=== PATIENT | male | born 1960 ===

== ENCOUNTER 2020-10-23 07:02 | Emergency (ER) | payer MEDICARE, MEDICAID ==
--- NOTE | 2020-10-23 07:59 | XRay Report ---
CHEST 2 VIEWS INDICATION / CLINICAL INFORMATION: SOB. In need of dialysis. COMPARISON: None available. FINDINGS: SUPPORT DEVICES: None. HEART / MEDIASTINUM: No significant abnormality. LUNGS / PLEURA: Bilateral pulmonary opacities are noted. Some areas of interstitial nodularity are se en No pneumothorax. ADDITIONAL FINDINGS: No significant additional findings. IMPRESSION: 1. Bilateral pulmonary opacities with some interstitial nodularity could represent atypical infection . Follow-up recommended. Signer Name: Franc Gonzalez MD Signed: 10/23/2020 7:54 AM Workstation Name: [id number]
[2020-10-23 08:19] LABS: Hematocrit 36.7 % (35.5-45.6); Mean Corpuscular HGB Conc 33 % (32-34); Mean Corpuscular Volume 88 fl (84-94); Platelet Count 238 K/mm3 (140-440); Red Blood Count 4.15 M/mm3 (3.65-5.03)
[2020-10-23 08:28] LABS: Red Cell Distribution Width 22.5 % (13.2-15.2)
[2020-10-23 08:33] LABS: Calcium 9.1 mg/dL (8.4-10.2)
--- NOTE | 2020-10-23 08:37 | Emergency Department Report ---
HPI - General Chief Complaint: Medical Clearance Time Seen by Provider: 10/23/20 07:42 - HPI HPI: This is a 60-year-old -[place] male who presents to the emergency department with the complaint of being unable to receive dialysis. The patient is visiting from [place] and thought that he had been set up to get dialysis today at [facility]. However he found out that he does not have a chair/spot set up for him. He gets dialysis on Sunday and Saturdays, twice a week. He also has a history of arthritis, diabetes and hypertension. He has a left upper extremity dialysis fistula for access. He admits to a very small amount of shortness of breath and an occasional cough. He is a tobacco smoker. He is vaccinated for COVID-19. He denies any fever, chest pain, lower extremity swelling, nausea, vomiting, abdominal pain, back pain. ED Past Medical Hx - Past Medical History Previous Medical History?: Yes Hx Hypertension: Yes Hx Diabetes: Yes Hx Renal Disease: Yes (HD , ) Hx Arthritis: Yes Additional medical history: Neuropathy - Surgical History Past Surgical History?: Yes Additional Surgical History: Umbilical hernia surgery, Avinash. Rotator cuff repair, Left arm fistula - Social History Smoking Status: Current Every Day Smoker Substance Use Type: Marijuana, Prescribed - Medications Home Medications: Home Medications Medication Instructions Recorded Confirmed Last Taken Type Alprazolam 5 mg PO TID 10/23/20 10/23/20 Unknown History Amitriptyline 100 mg PO HS 10/23/20 10/23/20 Unknown History Atorvastatin 40 mg PO DAILY 10/23/20 10/23/20 Unknown History Clindamycin 300 mg PO TID 10/23/20 10/23/20 Unknown History DULoxetine 60 mg PO DAILY 10/23/20 10/23/20 Unknown History Dexilant 60 mg PO DAILY 10/23/20 10/23/20 Unknown History Furosemide (10 mg/ml) 40 mg PO DAILY 10/23/20 10/23/20 Unknown History LORazepam 5 mg PO TID 10/23/20 10/23/20 Unknown History Lyrica 75 mg PO DAILY 10/23/20 10/23/20 Unknown History Sertraline 50 mg PO DAILY 10/23/20 10/23/20 Unknown History Tamsulosin 4 mg PO DAILY 10/23/20 10/23/20 Unknown History oxyCODONE /ACETAMINOPHEN 325 mg PO TID 10/23/20 10/23/20 Unknown History ED Review of Systems ROS: Stated complaint: DIALYSIS Other details as noted in HPI Comment: All other systems reviewed and negative Constitutional: denies: chills, fever Eyes: denies: eye pain, vision change ENT: denies: ear pain, throat pain Respiratory: cough, shortness of breath Cardiovascular: denies: chest pain, palpitations Gastrointestinal: denies: abdominal pain, vomiting Genitourinary: denies: dysuria, discharge Musculoskeletal: denies: back pain, arthralgia Skin: denies: rash, lesions Neurological: denies: headache, weakness Physical Exam - Physical Exam Vital Signs: Vital Signs 10/23/20 07:06 Temperature 98.8 F Pulse Rate 100 H Respiratory 20 Rate Blood Pressure 153/86 O2 Sat by Pulse 90 Oximetry Physical Exam: GENERAL: The patient is well-developed well-nourished. HENT: Normocephalic. Atraumatic. Patient has moist mucous membranes. EYES: Extraocular motions are intact. NECK: Supple. Trachea is midline. CHEST/LUNGS: There are some coarse breath sounds heard. No tachypnea or accessory muscle use. There is no respiratory distress noted. HEART/CARDIOVASCULAR: Regular. There is no tachycardia. There is no murmur. ABDOMEN: Abdomen is soft, nontender. Patient has normal bowel sounds. There is no abdominal distention. SKIN: Skin is warm and dry. NEURO: The patient is awake, alert, and oriented. The patient is cooperative. Normal speech. MUSCULOSKELETAL: There is no tenderness or deformity. There is no limitation range of motion. ED Course Vital Signs 10/23/20 07:06 Temperature 98.8 F Pulse Rate 100 H Respiratory 20 Rate Blood Pressure 153/86 O2 Sat by Pulse 90 Oximetry ED Medical Decision Making - Lab Data Result diagrams: 10/23/20 07:58 10/23/20 07:58 Lab Results 10/23/20 10/23/20 10/23/20 Range/Units 07:58 07:58 09:26 WBC 8.8 (4.5-11.0) K/mm3 RBC 4.15 (3.65-5.03) M/mm3 Hgb 12.0 (11.8-15.2) gm/dl Hct 36.7 (35.5-45.6) % MCV 88 (84-94) fl MCH 29 (28-32) pg MCHC 33 (32-34) % RDW 22.5 H (13.2-15.2) % Plt Count 238 (140-440) K/mm3 Sodium 136 L (137-145) mmol/L Potassium 5.0 (3.6-5.0) mmol/L Chloride 90.4 L (98-107) mmol/L Carbon Dioxide 30 (22-30) mmol/L Anion Gap 21 mmol/L BUN 62 H (9-20) mg/dL Creatinine 9.5 H (0.8-1.3) mg/dL Estimated GFR 6 ml/min BUN/Creatinine Ratio 7 % Glucose 141 H (75-100) mg/dL Calcium 9.1 (8.4-10.2) mg/dL Hepatitis A IgM Ab Non-reactive (NonReactive) Hep Bs Antigen Non-reactive (Negative) Hep B Core IgM Ab Non-reactive (NonReactive) Hepatitis C Antibody Non-reactive (NonReactive) - Medical Decision Making This patient presents with the need for dialysis as he is visiting from out of town and did not get dialysis prearranged. Patient complains of some mild shortness of breath and does have an oxygen saturation of about 90%. The patient is a tobacco smoker and admits that he may be in the early stages of COPD. No significant tachypnea. He does not appear in respiratory distress. Chest x-ray shows some pulmonary vascular congestion. Labs shows renal sufficiency consistent with his end-stage renal disease on hemodialysis. No significant hyperkalemia. Nephrology contacted and consulted. The patient will be admitted to the hospitalist service for dialysis this morning/afternoon. Critical Care Time: No Critical care attestation.: If time is entered above; I have spent that time in minutes in the direct care of this critically ill patient, excluding procedure time. ED Disposition Clinical Impression: ESRD needing dialysis Hypertension Qualifiers: Hypertension type: primary hypertension Qualified Code(s): I10 - Essential (primary) hypertension Volume overload Qualifiers: Hypervolemia type: unspecified Qualified Code(s): E87.70 - Fluid overload, unsp ecified Disposition: DC- TO HOME OR SELFCARE Is pt being admited?: Yes Condition: Good Instructions: Hypertension (ED)
[2020-10-23] MEDS ORDERED: HYDROmorphone 1 MG/1 ML INJ IV ONE (09:12)
--- NOTE | 2020-10-23 10:02 | History and Physical Report ---
History of Present Illness Date of examination: 10/23/20 Date of admission: 10/23/2020 Chief complaint: I need dialysis History of present illness: Patient 60-year-old male with a history of hypertension diabetes, osteoarthritis, chronic pain, end-stage renal disease presented to the ED requiring hemodialysis. Patient is visiting from [place] and attempted to set up dialysis with [facility] hemodialysis center. When patient arrived they did not have a chair time for him. Was unable to dialyze him. Patient presents here for these reasons. Consult is been obtained with nephrology for dialysis. Patient receives dialysis Tuesdays and Saturdays only 2 days a week. Patient also is a chronic smoker and states he has a smoker's cough shortness of breath he also complains of chronic pain wanting Dilaudid. I did go over his med list and had oxycodone. Will discharge after hemodialysis. Past History Past Medical History: dialysis. denies: acute [place], anemia, CAD, cancer, GERD, hypertension, migraines, pulmonary embolism, renal failure, seizures Past Surgical History: Other (Vas-Cath placement) Social history: single, smoking. denies: alcohol abuse Family history: no significant family history Medications and Allergies Allergies Allergy/AdvReac Type Severity Reaction Status Date / Time No Known Allergies Allergy Unverified 10/23/20 07:06 Home Medications Medication Instructions Recorded Confirmed Last Taken Type Alprazolam 5 mg PO TID 10/23/20 10/23/20 Unknown History Amitriptyline 100 mg PO HS 10/23/20 10/23/20 Unknown History Atorvastatin 40 mg PO DAILY 10/23/20 10/23/20 Unknown History Clindamycin 300 mg PO TID 10/23/20 10/23/20 Unknown History DULoxetine 60 mg PO DAILY 10/23/20 10/23/20 Unknown History Dexilant 60 mg PO DAILY 10/23/20 10/23/20 Unknown History Furosemide (10 mg/ml) 40 mg PO DAILY 10/23/20 10/23/20 Unknown History LORazepam 5 mg PO TID 10/23/20 10/23/20 Unknown History Lyrica 75 mg PO DAILY 10/23/20 10/23/20 Unknown History Sertraline 50 mg PO DAILY 10/23/20 10/23/20 Unknown History Tamsulosin 4 mg PO DAILY 10/23/20 10/23/20 Unknown History oxyCODONE /ACETAMINOPHEN 325 mg PO TID 10/23/20 10/23/20 Unknown History Review of Systems Constitutional: weakness, no weight loss, no fever, no chills, no fatigue, no poor appetite, no daytime sleepiness Ears, nose, mouth and throat: no tinnitis, no sinus pressure, no sinus pain, no dental pain, no swelling in mouth, no headache, no pain front of neck Cardiovascular: no rapid/irregular heart beat, no syncope, no shortness of breath, no claudication, no phlebitis, no decreased exercise tolerance Respiratory: no cough, no wheezing, no pain, no sleep apnea, no respiratory infections Gastrointestinal: no diarrhea, no hematemesis, no loss of appetite, no early satiety Genitourinary Male: no hematuria, no difficulties fathering child, no kidney stones Integumentary: no boils Neurological: no paralysis, no parathesias, no seizures, no migraines, no convulsions, no change in speech, no burning pain Exam - Constitutional Vitals: Temp Pulse Resp BP Pulse Ox 98.8 F 100 H 20 153/86 90 10/23/20 07:06 10/23/20 07:06 10/23/20 07:06 10/23/20 07:06 10/23/20 07:06 General appearance: Present: no acute distress, well-nourished - EENT Eyes: Present: PERRL ENT: hearing intact, clear oral mucosa - Neck Neck: Present: supple, normal ROM - Respiratory Respiratory effort: normal Respiratory: bilateral: CTA - Cardiovascular Heart Sounds: Present: S1 & S2. Absent: rub, click - Extremities Extremities: pulses symmetrical, No edema Peripheral Pulses: within normal limits - Abdominal General gastrointestinal: Present: soft, non-tender, non-distended, normal bowel sounds Male genitourinary: Present: normal - Integumentary Integumentary: Present: clear, warm, dry - Musculoskeletal Musculoskeletal: gait normal, strength equal bilaterally - Psychiatric Psychiatric: appropriate mood/affect, intact judgment & insight - Neurologic Neurologic: CNII-XII intact, moves all extremities Results - Labs CBC & Chem 7: 10/23/20 07:58 10/23/20 07:58 Labs: Laboratory Last Values WBC 8.8 K/mm3 (4.5-11.0) 10/23/20 07:58 RBC 4.15 M/mm3 (3.65-5.03) 10/23/20 07:58 Hgb 12.0 gm/dl (11.8-15.2) 10/23/20 07:58 Hct 36.7 % (35.5-45.6) 10/23/20 07:58 MCV 88 fl (84-94) 10/23/20 07:58 MCH 29 pg (28-32) 10/23/20 07:58 MCHC 33 % (32-34) 10/23/20 07:58 RDW 22.5 % (13.2-15.2) H 10/23/20 07:58 Plt Count 238 K/mm3 (140-440) 10/23/20 07:58 Sodium 136 mmol/L (137-145) L 10/23/20 07:58 Potassium 5.0 mmol/L (3.6-5.0) 10/23/20 07:58 Chloride 90.4 mmol/L (98-107) L 10/23/20 07:58 Carbon Dioxide 30 mmol/L (22-30) 10/23/20 07:58 Anion Gap 21 mmol/L 10/23/20 07:58 BUN 62 mg/dL (9-20) H 10/23/20 07:58 Creatinine 9.5 mg/dL (0.8-1.3) H 10/23/20 07:58 Estimated GFR 6 ml/min 10/23/20 07:58 BUN/Creatinine Ratio 7 % 10/23/20 07:58 Glucose 141 mg/dL (75-100) H 10/23/20 07:58 Calcium 9.1 mg/dL (8.4-10.2) 10/23/20 07:58 Assessment and Plan Advance Directives: Yes Plan of care discussed with patient/family: Yes - Patient Problems (1) ESRD needing dialysis Status: Acute Plan to address problem: Patient end-stage renal disease requiring hemodialysis. Will set up hemodialysis and stable for discharge after complete. Patient usually last on the dialysis machine for 3 hours. Treated Sunday and . No significant volume overload. (2) Hypertension Status: Acute Plan to address problem: Fair control will resume medications after hemodialysis. (3) Depression Status: Acute Plan to address problem: Resume antidepressants. (4) Opioid dependence Status: Acute Plan to address problem: Okay to give Percocet. Would not give Dilaudid.
[2020-10-23] MEDS ORDERED: ONDANSETRON 4 MG/2 ML INJ IV PRN (10:08)
[2020-10-23] MEDS ORDERED: ACETAMINOPHEN 325 MG TAB PO PRN (10:08)
[2020-10-23] MEDS ORDERED: oxyCODONE /ACETAMINOPHEN 5-325MG TAB PO PRN (10:08)
--- NOTE | 2020-10-23 10:08 | Discharge Summary ---
Providers - Providers Date of discharge: 10/23/20 Attending physician: Physician in [place] Dr. Bledsoe 10/23/20 08:58 Consult to Physician [CONS] Routine Comment: Consulting Provider: AFUA SMITH Physician Instructions: Reason For Exam: ESRD needing dialysis Hospitalization Condition: Good Hospital course: Patient presented from out of town on vacation unable to receive dialysis. Came in to receive dialysis will be dialyzed today and stable for discharge home after dialysis complete. No concerns no chest pain or shortness of breath no volume overload. Patient received call from nephrology stated that he should go to the ED for dialysis. Disposition: DC-01 TO HOME OR SELFCARE Final Discharge Diagnosis (Prints w/discharge instructions): Acute on chronic kidney disease - Discharge Diagnoses (1) ESRD needing dialysis Status: Acute (2) Hypertension Status: Acute (3) Depression Status: Acute (4) Opioid dependence Status: Acute Core Measure Documentation - Palliative Care Palliative Care/ Comfort Measures: Not Applicable - Core Measures Any of the following diagnoses?: none Exam - Constitutional Vitals: Temp Pulse Resp BP Pulse Ox 98.8 F 100 H 20 153/86 90 10/23/20 07:06 10/23/20 07:06 10/23/20 07:06 10/23/20 07:06 10/23/20 07:06 General appearance: Present: no acute distress, well-nourished - EENT Eyes: Present: PERRL ENT: hearing intact, clear oral mucosa - Neck Neck: Present: supple, normal ROM - Respiratory Respiratory effort: normal Respiratory: bilateral: CTA - Cardiovascular Heart Sounds: Present: S1 & S2. Absent: rub, click - Extremities Extremities: pulses symmetrical, No edema Peripheral Pulses: within normal limits - Abdominal General gastrointestinal: Present: soft, non-tender, non-distended, normal bowel sounds Male genitourinary: Present: normal - Integumentary Integumentary: Present: clear, warm, dry - Musculoskeletal Musculoskeletal: gait normal, strength equal bilaterally - Psychiatric Psychiatric: appropriate mood/affect, intact judgment & insight - Neurologic Neurologic: CNII-XII intact, moves all extremities Plan Activity: no restrictions Diet: renal
[2020-10-23] MEDS ORDERED: DULoxetine 30 MG CAP PO SCH (10:15)
--- NOTE | 2020-10-23 10:26 | Consultation ---
History of Present Illness - Reason for Consult Consult date: 10/23/20 end stage renal disease - History of Present Illness patient with ESRD on HD twice a week, last tx was , [place] and was supposed to have dialysis as an outpatient today but for some reason it was not set up properly, today he is having some SOB, renal consult was requested for HD management Past History Past Medical History: dialysis. denies: acute [place], anemia, CAD, cancer, GERD, hypertension, migraines, pulmonary embolism, renal failure, seizures Past Surgical History: Other (Vas-Cath placement) Social history: single, smoking. denies: alcohol abuse Family history: no significant family history Medications and Allergies Allergies Allergy/AdvReac Type Severity Reaction Status Date / Time No Known Allergies Allergy Verified 10/23/20 10:12 Home Medications Medication Instructions Recorded Confirmed Last Taken Type Alprazolam 5 mg PO TID 10/23/20 10/23/20 Unknown History Amitriptyline 100 mg PO HS 10/23/20 10/23/20 Unknown History Atorvastatin 40 mg PO DAILY 10/23/20 10/23/20 Unknown History Clindamycin 300 mg PO TID 10/23/20 10/23/20 Unknown History DULoxetine 60 mg PO DAILY 10/23/20 10/23/20 Unknown History Dexilant 60 mg PO DAILY 10/23/20 10/23/20 Unknown History Furosemide (10 mg/ml) 40 mg PO DAILY 10/23/20 10/23/20 Unknown History LORazepam 5 mg PO TID 10/23/20 10/23/20 Unknown History Lyrica 75 mg PO DAILY 10/23/20 10/23/20 Unknown History Sertraline 50 mg PO DAILY 10/23/20 10/23/20 Unknown History Tamsulosin 4 mg PO DAILY 10/23/20 10/23/20 Unknown History oxyCODONE /ACETAMINOPHEN 325 mg PO TID 10/23/20 10/23/20 Unknown History Active Meds: Active Medications Acetaminophen (Acetaminophen 325 Mg Tab) 650 mg PO Q4H PRN PRN Reason: Pain MILD(1-3)/Fever >100.5/JACOBSON Duloxetine HCl (Duloxetine 30 Mg Cap) 60 mg PO DAILY KWAME Ondansetron HCl (Ondansetron 4 Mg/2 Ml Inj) 4 mg IV Q8H PRN PRN Reason: Nausea And Vomiting Oxycodone/Acetaminophen (Oxycodone /Acetaminophen 5-325mg Tab) 2 tab PO Q6H PRN PRN Reason: Pain, Moderate (4-6) Sodium Chloride (Sodium Chloride 0.9% 10 Ml Flush Syringe) 10 ml IV BID KWAME Sodium Chloride (Sodium Chloride 0.9% 10 Ml Flush Syringe) 10 ml IV PRN PRN PRN Reason: LINE FLUSH Exam - Vital Signs Vital signs: Vital Signs Temp Pulse Resp BP Pulse Ox 98.8 F 100 H 20 153/86 90 10/23/20 07:06 10/23/20 07:06 10/23/20 07:06 10/23/20 07:06 10/23/20 07:06 Results - Lab Results 10/23/20 07:58 10/23/20 07:58 Most recent lab results Calcium 9.1 mg/dL (8.4-10.2) 10/23/20 07:58 Assessment and Plan ESRD on HD HTN Shortness of breath COPD HD today for clearance and volume removal can be discharged from renal stabpoitn post HD renally dose meds strict I&O daily weight
[2020-10-23 11:37] LABS: Hepatitis B Surface Antigen Non-Reactive (Negative); Hepatitis C Virus Antibody Non-Reactive (NonReactive)
[2020-10-23 12:25] LABS: Total Cells Counted 100
[2020-10-23 12:26] LABS: Anisocytosis 1+
[2020-10-23 12:27] LABS: Platelet Estimate Consistent w Auto; Schistocytes Few
[2020-10-23 14:27] VITALS: BP 153/79
== END 2020-10-23 23:59 | disposition left against medical advice (07) ==
LOC: ED 07:02
DX: I12.0 Hypertensive chronic kidney disease with stage 5 chronic kidney disease or end stage renal disease (principal); E11.22 Type 2 diabetes mellitus with diabetic chronic kidney disease; N18.6 End stage renal disease; Z99.2 Dependence on renal dialysis; M19.90 Unspecified osteoarthritis, unspecified site; F17.200 Nicotine dependence, unspecified, uncomplicated; Z98.890 Other specified postprocedural states; Z79.899 Other long term (current) drug therapy; Z72.89 Other problems related to lifestyle
CPT/HCPCS: 36415; 71046; 80048; 80074; 85007; 85025; 96374; 99284; J1170